=== PATIENT | female | born 1955 | race Caucasian/White ===

== ENCOUNTER → 2018-09-15 | Outpatient (CLI) | payer BC ==
[~2018-09-15] MED LIST: ASPI-1471 PO; RIV10 PO; RIVA15TA PO; RIVA20TA PO; ROSU20TA5 PO; SIMV-54 PO; SULF-198 PO
== END ==
LOC: LAB 14:03
PROVIDERS: ATTEND Emergency Medicine
DX: R20.8 Other disturbances of skin sensation (principal); M79.10 Myalgia, unspecified site
CPT/HCPCS: 36415; 82306; 82607

== ENCOUNTER → 2019-04-14 | Outpatient (CLI) | payer MEDICARE, BC ==
[~2019-04-14] MED LIST changes: +PNEU0.5D3 IM
[2019-04-14 09:53] LABS: PLATELET COUNT, AUTOMATED 198 K/uL (150-450)
--- NOTE | 2019-04-14 10:43 | RADIOLOGY IMAGING REPORT ---
FACILITY: [facility] [place] PATIENT NAME: Elsy Chang : 1955 MR: [id number] V: [id number] EXAM DATE: ORDERING PHYSICIAN: MALCOLM WILKERSON TECHNOLOGIST: Location: [facility] - [place], [place] Patient: Elsy Chang : 1955 Visit/Account:[id number] Date of Sevice: 04/14/2019 DEXA Scan Clinical history: Postmenopausal. Comparison: None available. LUMBAR SPINE: The bone mineral density (BMD) measured from L1-L4 correlates with a Z-score -0.8 and a T-score of -2 .2 which is osteopenia as defined by the World Health Organization. The corresponding risk of fractu re in the lumbar spine is 4-6 times increased compared with a young adult reference population. HIP: Bone mineral density (BMD) measured in the Left total hip region correlates with a Z-score by 0.4 and a T-score of -1.5 which is osteopenia as defined by the World Health Organization. The correspondin g risk of fracture in the hip is 3 times increased compared with a young adult reference population. T score left femoral neck -1.8 Bone mineral density (BMD) measured in the Femoral Neck region measures 0.781 g/cm2. Impression: 1. Lumbar spine: Osteopenia. 2. Left Hip: Osteopenia. 3. Femoral Neck: Bone Mineral Density is 0.781 g/cm2 The next DEXA scan of this patient should include the following sites: L1-L4 and the left hip. FRAX? WHO Fracture Risk Assessment Tool link: <http://www.shef.ac.uk/FRAX/tool.jsp?[email or web address]> PLEASE NOTE: 1) The World Health Organization defines low BMD as follows: T-score Normal > -1 Osteopenia < -1 and > -2.5 Osteoporosis < -2.5 without fractures Established osteoporosis < -2.5 with fractures 2) In general, you may wish to consider: Diagnosis Treatment Follow-up DEXA Normal BMD Prevention 2-3 years Osteopenia Prevention/therapy 1-2 years Osteoporosis Therapy Yearly 3) Fracture risk estimated from the T-score is more accurate for vertebral fractures (often spontane ous) than for hip fractures. Report Dictated By: eZlda Clinton MD at 04/14/2019 10:34 AM Report E-Signed By: Zelda Clinton MD at 04/14/2019 10:35 AM WSN:[email or web address]
[2019-04-14 12:51] LABS: LDL CHOLESTEROL 96 mg/dl
== END ==
LOC: LAB 09:28
PROVIDERS: ATTEND Emergency Medicine
DX: M85.80 Other specified disorders of bone density and structure, unspecified site (principal); I25.10 Atherosclerotic heart disease of native coronary artery without angina pectoris; Z78.0 Asymptomatic menopausal state
CPT/HCPCS: 36415; 77080; 82040; 82247; 82306; 82310; 82374; 82435; 82465; 82565; 82947; 83718; 84075; 84132; 84155; 84295; 84450; 84460; 84478; 84520; 85007; 85027